=== PATIENT | male | born 1960 | race Caucasian/White ===

== ENCOUNTER 2020-11-29 07:17 | Day surgery (SDC) | payer BC ==
[~2020-11-29] VITALS: Ht 177.8 cm; Wt 110.6 kg
[~2020-11-29 07:17] MED LIST: AMLO5 PO; Androgel5 GM; B Complex1 EAC2; FISH1000; HYDCHL25 PO; IRBE150 PO; NAPR500 PO; OXYACE5T PO; UBID10; VITAMIN D-32000 UNIT
== END 2020-11-29 09:40 | disposition home or self-care (01) ==
LOC: ORSCSDS 07:17
PROVIDERS: Internal Medicine Gastroenterology
PROC: 0DJD8ZZ Inspection of Lower Intestinal Tract, Via Natural or Artificial Opening Endoscopic (ICD-10-PCS; principal; 2020-11-29 08:45)
DX: Z12.11 Encounter for screening for malignant neoplasm of colon (principal); Z83.71 Family history of colonic polyps; I10 Essential (primary) hypertension; Z79.899 Other long term (current) drug therapy
CPT/HCPCS: J2704; J7120

== ENCOUNTER → 2022-07-19 | Outpatient (CLI) | payer BC ==
[2022-07-19 08:33] LABS: Bun/Creatinine Ratio 18.5 (12.0-20.0); Calcium, Blood 8.8 mg/dL (8.5-10.1); Creatinine, Blood 0.76 mg/dL (0.60-1.20); Potassium, Blood 3.9 mmol/L (3.5-5.5)
== END | disposition home or self-care (01) ==
LOC: LAB SHORT 06:15 → LAB 06:15
PROVIDERS: Physician Assistant Medical
DX: R73.09 Other abnormal glucose (principal)
CPT/HCPCS: 36415; 80048; 83036